=== PATIENT | female | born 1975 | race Caucasian/White ===

== ENCOUNTER 2025-07-04 08:37 | Outpatient (OUT) | payer OTHER, SELFPAY ==
--- NOTE | 2025-07-04 | XR_ITS ---
The [address] [address] Patient Name: TOMÁS HUGHES MRN: [id number] date: 1975 Sex: F Assigned Patient Location: [facility] Current Patient Location: [facility] Accession/Order Number: [id number] Exam Date: 07/04/2025 09:21 Report Date: 07/04/2025 09:23 At the request of: NEETA CATALAN DO Procedure: XR shoulder RT min 2V RIGHT SHOULDER - 4 views CLINICAL HISTORY: Chronic right shoulder pain, greatest at the clavicle after a pop 6 months ago COMPARISON: None AP, Y, axillary and Grashey views were obtained. There is no evidence of fracture or dislocation. Incidental note is made of reverse S-shaped cervicothoracic scoliotic curvature. There are no significant soft tissue abnormalities. XR/XR shoulder RT min 2V IMPRESSION: NO ACUTE BONY FINDINGS. Impression dictated by: Karina Tripp M.D. 07/04/2025 9:23 AM Dictation Location: [place] [address] Electronically authenticated by: [id number] Y Date: 07/04/2025 09:23
== END 2025-07-04 08:38 | disposition home or self-care (01) ==
LOC: RAD 08:37
PROVIDERS: Visit Provider Physician Assistant
DX: M25.511 Pain in right shoulder (principal)
CPT/HCPCS: 73030